=== PATIENT | male | born 1980 | race African-American/Black ===

== ENCOUNTER 2016-08-18 16:51 | Emergency (ER) | payer OTHER ==
[~2016-08-18] VITALS: Ht 185.4 cm; Wt 85.0 kg
[~2016-08-18 16:51] MED LIST: OMEPRAZOLE40 M1 PO; PREDNISONE10 M1 PO; VENTOLIN HFA18 GM IH
[2016-08-18 19:15] VITALS: BP 144/74
== END 2016-08-18 19:16 | disposition home or self-care (01) ==
LOC: EME 16:51
PROC: 3E0234Z Introduction of Serum, Toxoid and Vaccine into Muscle, Percutaneous Approach (ICD-10-PCS; principal; 2016-08-18)
DX: S81.812A Laceration without foreign body, left lower leg, initial encounter (principal); S80.12XA Contusion of left lower leg, initial encounter; W26.0XXA Contact with knife, initial encounter; Y93.H9 Activity, other involving exterior property and land maintenance, building and construction; Z23 Encounter for immunization
CPT/HCPCS: 73590; 99281; 99283